=== PATIENT | male | born 1970 | race Caucasian/White ===

== ENCOUNTER 2017-04-29 | Emergency (ER) | payer SELFPAY ==
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
== END 2017-04-29 14:02 | disposition short-term general hospital (02) ==
CPT/HCPCS: 99285

== ENCOUNTER 2024-06-20 08:16 | Emergency (ER) | payer SELFPAY ==
--- OUTSIDE RECORDS SUMMARY | 2024-06-20 08:18 | XMS REPORT | Continuity of Care Document ---
Author Name Unknown Address [address] [facility] [place] [address] [facility] [place] Address [address] [facility] [place] [address] Care Team Providers Care Operations Chief Name Role Phone Sourav Lundberg Attending Clinician Unavailable Mayito Mcfarland Admitting Clinician Unavailable Payers Payer Name Policy Type Policy Number Effective Date Expirati on Date Source Allergies, Adverse Reactions, Alerts Allergy Name Allergy Type Status Severity Reaction(s) Onset Date Inactive Date Treating Clinician Comments Source No Known Allergie s DA Active U 2022-02 00:00: 00 [facility] Encounters Start Date/Time End Date/Time Encounter Type Admission Type Attending Clinicians Care Facility Care Department Encounter ID Source 2023-01-08 11:08:06 [id number] 2023-01-01 08:55:00 2023-01-02 20:01:00 Inpatient Sourav Da Silva [facility] [id number] [facility] Results Test Description Test Time Test Comments Results Result Co mments Source - NM MYOCRD SPECT R/S MULT 2023-01-03 15:04:00 [facility] : 1970 Sex: M ------- Patient Name: TRAVIS BAEZA Unit No: [id number] EXAMS: CPT CODE: [id number] NM MYOCRD SPECT R/S MULT [id number] Lexiscan Myocardial Perfusion Imaging Indication: chest pain Attending: Dr. Lata Lundberg Procedure: Stress testing was performed via Lexiscan protocol. 10.5 mCi of Tc99m Sestamibi was injected and rest images were obtained. The patient then underwent Lexiscan infusion per protocol. Next, 26.3 mCi of Tc99m Sestamibi mCi was injected and stress images were obtained. Description of findings: There was homogenous radiotracer distribution at stress and rest. LVEF was calculated to be 63%. Wall motion was normal. Impression: 1. Normal study 2. No significant reversible ischemia 3. Normal LVEF and wall motion at 1504 Reported and signed by: Jose Antonio Dodd MD Nuclear Medicine Cardiology exams performed on dual head cameras with appropriate software for processing and reporting. CC: Omar Anne MD [facility] NAME: TRAVIS BAEZA MEDICAL IMAGING PHYS: [id number] - Omar Anne MD [address] [place], [place] [address]VD : 1970 AGE: 52 SEX: Eric [place] [id number] LOC: B.01 W PHONE #: [phone] EXAM DATE: 01/02/2023 STATUS: DIS IN FAX #: [phone] RAD NO: DC Dt: 01/02/2023 PAGE 1 Signed Report --- Patient Name: TRAVIS BAEZA Unit No: [id number] EXAMS: CPT CODE: [id number] NM MYOCRD SPECT R/S MULT [id number] (Continued) Technologist: Jermain Cardenas Transcribed Date/Time: 01/03/2023 (1504) - [email or web address] Orig Print D/T: S: 01/03/2023 (1507) KENNEDI Monroe NAME: TRAVIS BAEZA MEDICAL IMAGING PHYS: ABBOmar Miner MD [address] [place] [address] BLVD : 1970 AGE: 52 SEX: MAN [place] [id number] LOC: B.01 W PHONE #: [phone] EXAM DATE: 01/02/2023 STATUS: DIS IN FAX #: [phone] RAD NO: DC Dt: 01/02/2023 PAGE 2 Signed Report TROP-I HIGH [id number] 20:05:00* Test Item Value Reference Range Interpretation Comme nts TROP-I HIGH SENSITIVITY (test code = TROPIHS) 6 ng/L 0-45 N CAUTION: Units of the current test methodology (ng/L) differfrom the prior test methodology (ng/mL) by a factor of 1000. 99th Percentile Upper Reference Limit (URL): Females: 54 ng/LMales: 78 ng/L In order to distinguish acute elevations of high sensitivitytroponin from other clinical conditions, the FourthUniversal Definition of Myocardial Infarction stressesclinical assessment and the demonstration of a rise and/orfall in serial troponin results above the URL. Results from different methodologies should not be comparedto one another as quantitative results and URLs may vary bymethod. THYROID STIMULATING [id number] 10:48:00* Test Item Value Reference Range Interpretation Comme nts THYROID STIMULATING HORMONE (test code = TSH) 0.790 mc IU/ML 0.340-4.820 N TROP-I HIGH [id number] 10:42:00* Test Item Value Reference Range Interpretation Comme nts TROP-I HIGH SENSITIVITY (test code = TROPIHS) 6 ng/L 0-45 N CAUTION: Units of the current test methodology (ng/L) differfrom the prior test methodology (ng/mL) by a factor of 1000. 99th Percentile Upper Reference Limit (URL): Females: 54 ng/LMales: 78 ng/L In order to distinguish acute elevations of high sensitivitytroponin from other clinical conditions, the FourthUniversal Definition of Myocardial Infarction stressesclinical assessment and the demonstration of a rise and/orfall in serial troponin results above the URL. Results from different methodologies should not be comparedto one another as quantitative results and URLs may vary bymethod. GLYCOSYLATED HEMOGLOBIN (HA1C)2023-01-01 10:26:00* Test Item Value Reference Range Interpretation Comme nts GLYCOSYLATED HEMOGLOBIN (HA1 C) (test code = GLYHGB) 5.2 % IS-A1C 4.5-5.6 N B-TYPE NATRIURETIC [id number] 08:07:00* Test Item Value Reference Range Interpretation Comme nts B-TYPE NATRIURETIC PEPTIDE ( test code = BNP) 35.87 PG/ML 0.00-100.00 N BASIC METABOLIC [id number] 07:59:00* Test Item Value Reference Range Interpretation Comme nts SODIUM (test code = NA) 142.0 mmol/L 133-144 N POTASSIUM (test code = K) 3.2 mmol/L 3.5-5.1 L CHLORIDE (test code = CL) 108 mmol/L 95-105 H CARBON DIOXIDE (test code = CO2) 27 mmol/L 21-32 N ANION GAP (test code = GAP) 7.0 GAP calc 4.0-15.0 N GLUCOSE (test code = GLU) 93 MG/DL 70-110 N BLOOD UREA NITROGEN (test code = BUN) 9 MG/DL 7-18 N GLOMERULAR FILTRATION RATE (test code = GFR) 84 estGFR >60 The Glomerular Filtration Rate is a calculated parameterbased on serum Creatinine, patient age and sex. GFR valuesless than 60 mL/min/1.73 square meters are indicative ofChronic Kidney Disease. Values less than 15 mL/min/1.73square meters indicate Kidney failure. The calculation forGFR is based on the CKD-EPI (2020) calculation. This formulais race indifferent and is the recommended formula for GFRby the National Kidney Foundation for Adults.The GFR will not calculate if the sex is unknown or if thepatient's age is <18 years. CREATININE (test code = CREAT) 1.07 MG/DL 0.55-1.30 N Results may be depressed if patient is takingN-Acetylcysteine (NAC) and Metamizole (Dipyrone). CALCIUM (test code = CA) 8.9 MG/DL 8.5-10.1 N INDEX HEMOLYSIS (test code = HEMINDEX) 1 NORMAL <10 MG Index/DL See_Comment [Automated message] The system which generated this result transmitted reference range: 1 NORMAL. The reference range was not used to interpret this result as normal/abnormal. INDEX ICTERIC (test code = ICTINDEX) 1 NORMAL <2 MG Index/DL See_Comment [Automated message] The system which generated this result transmitted reference range: 1 NORMAL. The reference range was not used to interpret this result as normal/abnormal. INDEX LIPEMIA (test code = LIPINDEX) 1 NORMAL <50 MG Index/DL See_Comment [Automated message] The system which generated this result transmitted reference range: 1 NORMAL. The reference range was not used to interpret this result as normal/abnormal. TROP-I HIGH [id number] 07:59:00* Test Item Value Reference Range Interpretation Comme nts TROP-I HIGH SENSITIVITY (test code = TROPIHS) 6 ng/L 0-45 N CAUTION: Units of the current test methodology (ng/L) differfrom the prior test methodology (ng/mL) by a factor of 1000. 99th Percentile Upper Reference Limit (URL): Females: 54 ng/LMales: 78 ng/L In order to distinguish acute elevations of high sensitivitytroponin from other clinical conditions, the FourthUniversal Definition of Myocardial Infarction stressesclinical assessment and the demonstration of a rise and/orfall in serial troponin results above the URL. Results from different methodologies should not be comparedto one another as quantitative results and URLs may vary bymethod. [id number] 07:46:00* Test Item Value Reference Range Interpretation Comme nts D-DIMER (test code = DDIMER) 318 FEUng/mL 0-500 N THE CUT-OFF VALU E FOR EXCLUSION OF VTE = 500 FEU ng/mLNOTE: This method must be used with additional tests in theevaluation of VTE and should not be used to exclude VTE withpretest probability alone. CBC W/O [id number] 07:43:00* Test Item Value Reference Range Interpretation Comme nts WHITE BLOOD CELL (test code = WBC) 6.8 K/mm3 4.1-12.1 N RED BLOOD CELL (test code = RBC) 4.75 M/mm3 3.8-5.5 N HEMOGLOBIN (test code = HGB) 14.5 G/DL 10.6-15.8 N HEMATOCRIT (test code = HCT) 42.0 % 31.8-47.4 N MEAN CELL VOLUME (test code = MCV) 88.4 fL 80.1-101.1 N MEAN CELL HGB (test code = MCH) 30.5 pg 25.3-35.3 N MEAN CELL HGB CONCETRATION ( test code = MCHC) 34.5 G/DL 32.7-35.1 N RED CELL DISTRIBUTION WIDTH (test code = RDW) 13.0 % 12.2-16.4 N PLATELET COUNT (test code = PLT) 191 K/mm3 155-337 N MEAN PLATELET VOLUME (test c ode = MPV) 9.0 fL 7.6-10.4 N - XR CHEST 1 [id number] 07:27:00 [facility] : 1970 Sex: M FAX:Emigdio Barahona Motley: E St: REG FAX: Isadora Snyder DO [phone] Patient Name: TRAVIS BAEZA Unit No: [id number]: CPT CODE: [id number] XR CHEST 1 V [id number] EXAM: - XR CHEST 1 V HISTORY: Chest pain LOCATION CODE:T18 TECHNIQUE: Frontal radiograph of the chest. COMPARISON: None. FINDINGS: Normal heart size. No focal airspace consolidation. No pulmonary edema, pleural effusion or pneumothorax. Imaged osseous structures are without acute abnormality. IMPRESSION: No radiographic evidence of acute cardiopulmonary disease. at 07 Reported and signed by: Jaclyn Cam MD CC: Emigdio JOHNSTON Dictated Date/Time: 01/01/2023 (726)Technologist: ROSANGELA FARIAS Transcribed Date/Time: 01/01/2023 (726) By: [email or web address] Orig Print D/T: S: 01/01/2023 (07) [facility] NAME: TRAVIS BAEAZ [address] [place] [address] PHYS: Emigdio Dill [place] [address] : 1970 AGE: 52 SEX: M LOC: [place] PHONE #:[phone] EXAM DATE: 01/01/2023 STATUS: REG ER FAX #: [phone] RAD NO: DC Dt: PAGE 1 SignedReport Notes Date/Time Note Provider Source 2023-01-09 09:33:00 [id number] [place] [address] PATIENT NAME: TRAVIS BAEZA ADMIT DATE: 01/01/23 ACCOUNT NO: [id number] ROOM NO: B. AGE: 52 REPORT TYPE: 360 - QUERY RESPONSE DOCUMENT SEX: M ADMITTING PHYSICIAN:Mayito Mcfarland MD ATTENDING PHYSICIAN:Souarv Lundberg MD Provider Query QUERY TEXT: Condition General 360MD Query related questions should be directed to:[facility] Coding Query Helpline Based on your medical judgment and the clinical indicators listed below kindly specify the underlying cause of the patient's Chest pain (GERD,Hypoakelmia,chest pain unspecified, or other more appropriate diagnosis)? The patient's Clinical Indicators include: Chest pain-Hospitalist progress note 01/02/2023 GERD-Hospitalist progress note 01/02/2023 Hypokalemia-Hospitalist progress note 01/02/2023 Options provided: -- Respond - Create new note now -- Dismiss - Not applicable / Not valid -- Dismiss - Clinically unable to determine / Unknown -- Assign to another provider QUERY RESPONSE: gerd Query created by: Jeremy Arnold on 01/05/2023 3:20 AM at 0933 PATIENT NAME: TRAVIS BAEZA [facility] 2023-01-03 12:35:00 [facility] Hospitalist Discharge Summary REPORT#:[id number] REPORT STATUS: Signed REPORT INITIALIZATION DATE:01/03/23 TIME: 1234 PATIENT: TRAVIS BAEZA UNIT #: [id number] ROOM/BED: [facility] : 70 AGE: 52 SEX: M ATTEND: Sourav Lundberg MD ADM AUTHOR: Sourav Lundberg MD REPT SERVICE DT/TIME: 01/02/23 1235 * ALL edits or amendments must be made on the electronic/computer document * General Information Discharge date: 01/02/23 Discharge diagnosis: GERD Chest pain Hospital course: This is a 52-year-old male with no significant past medical history, does report occasional symptoms of acid reflux which gets resolved with July-Eclectic. He comes in with 3 to 4-day history of heartburns and for the last 48 hours complains of sharp chest pain lasting for few minutes. No clear association to exertion. Also reports dyspnea on mild exertion, symptom onset in the last 2 to 3 days. Chest x-ray unremarkable. Twelve-lead EKG with no significant ST changes. Troponins negative. Patient was seen by cardiology and had a ischemic workup had a stress test done which was unremarkable cleared by cardiology for discharge discharge home on PPI Objective VS/I O Last Documented: Result Date Time Pulse Ox 97 01/03 1932 B/P 101/66 01/03 1932 B/P Mean 77.4 01/03 1932 Temp 98.1 01/03 1932 Pulse 78 01/03 1932 Resp 13 01/03 1932 O2 Delivery Room air 01/02 1137 General appearance: alert, awake Head/Eyes: atraumatic, clear cornea, EOMI, normal conjunctiva/sclera, normal eyelids/periorb., normocephalic, PERRL Cardiovascular: normal capillary refill, regular rate rhythm Respiratory: clear to auscultation, no distress Abdomen: non-tender, normal bowel sounds, soft, no distention, no guarding, no hernia, no mass/organomegaly, no rebound Extremities: moves all, normal capillary refill, normal range of motion, no edema Musculoskeletal: normal inspection Neuro/DIGITAL PRE PRESS OPERATOR: alert, oriented X 3 Discharge Instructions Additional Discharge Routines: PCP Follow-Up at 1236 RPT #:[id number] END OF REPORT [facility] 2023-01-02 18:46:00 [facility] Hospitalist Progress Note REPORT#:[id number] REPORT STATUS: Signed REPORT INITIALIZATION DATE:01/02/23 TIME: 1845 PATIENT: TRAVIS BAEZA UNIT #: [id number] ROOM/BED: [facility] : 70 AGE: 52 SEX: M ATTEND: Sourav Lundberg MD ADM AUTHOR: Sourav Lundberg MD REPT SERVICE DT/TIME: 01/02/231845 * ALL edits or amendments must be made on the electronic/computer document * Subjective HPI: pt seeen and examined at bedside Objective General VS/I O: Vital Signs: Date Time Temp Pulse Resp B/P B/P Pulse O2 O2 Flow FiO2 Mean Ox Delivery Rate 01/02 113 98.2 59 16 120/73 88.7 96 Room air 01/02 0735 98.8 60 16 125/77 92.9 99 Room air 01/02 0348 98.1 73 13 132/78 95.7 100 Room air 01/02 0324 100 Room air 01/01 2338 97.3 58 14 131/81 97.8 99 Room air 01/01 1915 97.7 51 14 111/72 84.9 97 Room air 24 hour I O ending at 0700: 01/02 0700 01/01 1900 Intake Total 200 650 Output Total Balance 200 650 Intake, Oral 200 650 Number Voids 3 4 Output, Emesis PATIENT WEIGHT: Weight (lb): Weight (oz): Weight (kg): 81.818 Medications: Active Meds + DC'd Last 24 Hrs Regadenoson (LEXISCAN) 0.4 MG .STK-MED ONE IV (DC) Technetium TC99M Sestamibi (TC 99M Sestamibi) 26.3 mCi .STK-MED ONE IV ( DC) Technetium TC99M Sestamibi (TC 99M Sestamibi) 10.5 mCi .STK-MED ONE IV ( DC) Aspirin (ASPIRIN) 81 MG DAILY PO Isosorbide Mononitrate (IMDUR) 30 MG DAILY PO Acetaminophen/Butalbital/Caffeine (FIORICET) 1 UDTAB Q6H PRN PRN PO Acetaminophen/Butalbital/Caffeine (FIORICET) 1 UDTAB ONCE ONE PO (DC) Atorvastatin Calcium (LIPITOR) 40 MG BEDTIME PO Nitroglycerin (NITRO-BID 2%) 1 INCH Q6H WA TOPICAL Acetaminophen (TYLENOL) 650 MG Q4H PRN PRN PO Albuterol/Ipratropium (DUONEB 2.5-0.5MG/3ML SOLN) 3 ML RTQ4H PRN PRN NEB Calcium Carbonate (TUMS) 1,000 MG DAILY PRN PRN PO Enoxaparin Sodium (LOVENOX) 40 MG Q24H SUBQ Hydralazine HCl (APRESOLINE) 10 MG Q4H PRN PRN IV Hydrocodone Bitart/Acetaminophen (NORCO 5/325 TABLET) 1 TAB Q4H PRN PRN PO Magnesium Sulfate/Dextrose (MAGNESIUM SULFATE 1GM/D5W 100ML) 100 ML DAILY PRN PRN IV Ondansetron HCl (ZOFRAN) 4 MG Q4H PRN PRN IV Potassium Chloride (K-DUR) 40 MEQ DAILY PRN PRN PO Potassium Phos/Sodium Phos (PHOS-NAK PACKET) 2 PKT DAILY PRN PRN PO (CKD ) Senna (SENOKOT) 1 TAB DAILY PRN PRN PO (CKD) Physical Exam General appearance: alert, awake Head/Eyes: atraumatic, clear cornea, EOMI, normal conjunctiva/sclera, normal eyelids/periorb., normocephalic, PERRL Cardiovascular: normal capillary refill, regular rate rhythm Respiratory: clear to auscultation, no distress Abdomen: non-tender, normal bowel sounds, soft, no distention, no guarding, no hernia, no mass/organomegaly, no rebound Extremities: moves all, normal capillary refill, normal range of motion, no edema Musculoskeletal: normal inspection Neuro/DIGITAL PRE PRESS OPERATOR: alert, oriented X 3 Diagnosis, Assessment Plan Free Text DxA P Notes Free text DxA P notes: Chest pain, ACS rule out. -Troponin x2 negative. EKG does show mild T wave inversions in V1 to V3 -Continue to trend troponin, aspirin, statin, Nitro-Bid. Echocardiogram -Restratification risk stratification -Cardiology consulted, appreciate recommendation. N.p.o. after midnight for possible ischemic NST PENDING ECHO results pending start on ppi Hypokalemia: Replace and monitor History of vaping -Patient counseled on cessation DVT prophylaxis Full code D/w pt/ RN Overall time speaking with consultants reviewing labs ordering new labs speaking with patient at bedside performing physical exam on patient and charting = 45 minutes. This note was created using a voice-recognition transcribing system. Incorrect words or phrases may have been missed during proofreading. Please interpret accordingly. I am SIGNING OFF to one of the Hospital Doc's animal caregiver overnight and dayshift Attending tomorrow- TO BE ASSIGNED MD - will continue patient's care and management effective tonight 7 PM. I am deferring further evaluation, treatment, and consultations to the assigned animal caregiver and attending. at 1847 RPT #:[id number] END OF REPORT [facility] 2023-01-02 14:37:00 [id number] [address] PATIENT NAME: TRAVIS BAEZA ADMIT DATE: 01/01/23 ACCOUNT NO: [id number] ROOM NO: [facility] AGE: 52 REPORT TYPE: eECHOCARDIOGRAM REPORT SEX: M ADMITTING PHYSICIAN:Mayito Mcfarland MD ATTENDING PHYSICIAN:Sourav Lundberg MD Name: TRAVIS BAEZA Study Date: 01/02/2023 02:37 PMPatient Location: [facility] B.01 W URN: [id number] Gender: Male : 1970 Gender: Male Age: 52 yrs Ethnicity: W Reason For Study: CHEST PAIN Cardiac Measurements with Normal Values: Ao root diam: 3.0 cm 20-37 mmACS: 2.2 cm 15-26 mm LA dimension: 3.0 cm 19-40 mm LVIDd: 4.5 cm 37-56 mm LVIDs: 3.4 cm - IVSd: 0.79 cm6-11 mm RVDd: 3.2 cm 7-23 mm MMode/2D Measurements Calculations LVPWd: 0.89 cm FS: 25.3 % EDV(Teich): 91.9 ml ESV(Teich): 45.8 ml EF(Teich): 50.1 % LVOT diam: 2.0 cm Ao root area: 6.9 cm2 LVOT area: 3.1 cm2 Time Measurements Aortic R-R: 1.1 sec MM R-R int: 1.2 sec Aortic HR: 52.5 BPM MM HR: 51.2 BPM Doppler Measurements Calculations MV E max payal: 55.9 cm/sec MV V2 max: 65.2 cm/sec MV A max payal: 52.1 cm/sec MV max P.7 mmHg MV E/A: 1.1 MV V2 mean: 29.1 cm/sec MV mean P.46 mmHg MV V2 VTI: 23.1 cm MVA(VTI): 2.4 cm2 PATIENT NAME: TRAVIS BAEZA Ao V2 max: 96.1 cm/sec MV dec slope: 268.4 cm/sec2 Ao max P.7 mmHg MV dec time: 0.21 sec Ao V2 mean: 65.5 cm/sec Ao mean P.0 mmHg Ao V2 VTI: 22.2 cm MELANY(I,D): 2.5 cm2 MELANY(V,D): 2.6 cm2 LV V1 max P.6 mmHg CO(LVOT): 2.9 l/min LV V1 mean P.0 mmHg SV(LVOT): 54.7 ml LV V1 max: 80.2 cm/sec LV V1 mean: 44.5 cm/sec LV V1 VTI: 17.8 cm PA V2 max: 72.0 cm/sec PA max P.1 mmHg Conclusions A complete two-dimensional transthoracic echocardiogram was performed (2D, M- mode, Doppler and color flow Doppler). The study was technically limited. The left ventricle is grossly normal size. Left ventricular systolic function is normal. Ejection Fraction = 55-60%. The left ventricular wall motion is normal. Left Ventricle The left ventricle is grossly normal size. There is normal left ventricular wall thickness. Left ventricular systolic function is normal. Ejection Fraction = 55-60%. The left ventricular wall motion is normal. Right Ventricle The right ventricle is mildly dilated. The right ventricular systolic function is normal. Atria The left atrial size is normal. Right atrial size is normal. Mitral Valve The mitral valve is grossly normal. Tricuspid Valve The tricuspid valve is not well visualized, but is grossly normal. There is trace tricuspid regurgitation. Insufficient TR jet to estimate RVSP. Aortic Valve The aortic valve opens well. Pulmonic Valve PATIENT NAME: TRAVIS BAEZA The pulmonic valve is not well visualized. Pericardium/Pleural There is no pericardial effusion. Electronically signed by: MD Omar Anne 01/03/2023 11:03 AM Ordering Physician: Sourav Lundberg Referring Physician: Sourav Lundberg Performed By: Tesfaye Nguyễn at 1103 PATIENT NAME: TRAVIS BAEZA [facility] 2023-01-02 11:06:00 [facility] Int. Cardiology Consult Note REPORT#:[id number] REPORT STATUS: Signed REPORT INITIALIZATION DATE:01/02/23 TIME: 1105 PATIENT: TRAVIS BAEZA UNIT #: [id number] ROOM/BED: [facility] : 70 AGE: 52 SEX: M ATTEND: Sourav Lundberg MD ADM AUTHOR: Omar Anne MD REPT SERVICE DT/TIME: 01/02/23 1106 * ALL edits or amendments must be made on the electronic/computer document * History of Present Illness History of Present Illness Reason for consult: Chest Pain Chief complaint: Chest pain HPI: This is a 52-year-old male with no significant past medical history, does report occasional symptoms of acid reflux which gets resolved with July-Eclectic. He comes in with 3 to 4-day history of heartburns and for the last 48 hours complains of sharp chest pain lasting for few minutes. No clear association to exertion. Also reports dyspnea on mild exertion, symptom onset in the last 2 to 3 days. Chest x-ray unremarkable. Twelve-lead EKG with no significant ST changes. Troponins negative. He removed his Nitropaste as he was complaining of significant migraine. Past medical history of appendectomy and 3 right shoulder surgeries for rotator cuff. 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 Hx Obtained From Patient History - Adult longitudinal Past medical history: Denies: GERD/gastritis. Past surgical history: Reports: Appendectomy. Smoking status for patients 13 years old or older: Current every day smoker Medications: Home Medications: Medication Dose/Rte/Freq Days Qty Entered Last Max Daily Dose Reviewed No Known Home Medications Current Hospital Medications: Autonomic Drugs Sig/Paolo Start time Last Medication Dose Route Stop Time Status Admin Albuterol/Ipratropium 3 ML RTQ4H PRN PRN 01/01 0915 AC (DUONEB 2.5-0.5MG/ NEB 01/31 0916 3ML SOLN) Blood Formation,Coagulation Sig/Paolo Start time Last Medication Dose Route Stop Time Status Admin Enoxaparin Sodium 40 MG Q24H 01/01 0915 AC 01/02 (LOVENOX) SUBQ 01/31 0916 0906 Cardiovascular Drugs Sig/Paolo Start time Last Medication Dose Route Stop Time Status Admin Isosorbide 30 MG DAILY 01/02 09 AC 01/02 Mononitrate PO 02/01 0901 0906 (IMDUR) Atorvastatin Calcium 40 MG BEDTIME 01/01 2100 AC 01/01 (LIPITOR) PO 01/31 2101 2104 Nitroglycerin 1 INCH Q6H WA 01/01 1200 AC 01/01 (NITRO-BID 2%) TOPICAL 01/31 1201 1113 Hydralazine HCl 10 MG Q4H PRN PRN 01/01 0915 AC (APRESOLINE) IV 01/31 0916 Central Nervous System Agents Sig/Paolo Start time Last Medication Dose Route Stop Time Status Admin Aspirin 81 MG DAILY 01/02 09 AC 01/02 (ASPIRIN) PO 02/01 0901 0906 Acetaminophen/ 1 UDTAB Q6H PRN PRN 01/02 0745 AC 01/02 Butalbital/Caffeine PO 02/01 0746 0801 (FIORICET) Acetaminophen/ 1 UDTAB ONCE ONE 01/01 2345 DC 01/01 Butalbital/Caffeine PO 01/01 2346 2338 (FIORICET) Acetaminophen 650 MG Q4H PRN PRN 01/01 915 AC (TYLENOL) PO 02/01 916 Hydrocodone Bitart/ 1 TAB Q4H PRN PRN 01/01 915 AC 01/01 Acetaminophen PO 02/01 916 1809 (NORCO 5/325 TABLET) Magnesium Sulfate/ 100 ML DAILY PRN PRN 01/01 915 AC Dextrose IV 02/01 916 (MAGNESIUM SULFATE 1GM/D5W 100ML) Electrolytic, Caloric, And Marti Sig/Paolo Start time Last Medication Dose Route Stop Time Status Admin Calcium Carbonate 1,000 MG DAILY PRN PRN 01/01 915 AC (TUMS) PO 02/01 916 Potassium Chloride 40 MEQ DAILY PRN PRN 01/01 915 AC (K-DUR) PO 02/01 916 Potassium Phos/ 2 PKT DAILY PRN PRN 01/01 915 CKD Sodium Phos PO 02/01 916 (PHOS-NAK PACKET) Gastrointestinal Drugs Sig/Paolo Start time Last Medication Dose Route Stop Time Status Admin Ondansetron HCl 4 MG Q4H PRN PRN 01/01 915 AC 01/01 (ZOFRAN) IV 01/318 Senna 1 TAB DAILY PRN PRN 01/01 915 CKD (SENOKOT) PO 02/01 916 Allergies: Coded Allergies: No Known Allergies (01/01/23) Review of Systems Constitutional: No: chills, fatigue, fever. Skin: No: rash, swelling. Allergy/Immun: No: allergic reaction, anaphylaxis. Eyes: No: visual loss/blurred, itching, diplopia, eye pain. ENT: No: ear ringing, earache. Respiratory: Yes: COLEMAN (dyspnea on exertion). Cardiovascular: Yes: chest pain. No: orthopnea, palpitations. GI: No: abdominal pain, anorexia. Musculoskeletal: No: joint swelling, neck pain. Heme: No: bleeding, bruising. Neuro: No: lightheaded, unable to speak, weakness. Objective VS/I O: Last Documented: Result Date Time Pulse Ox 99 01/02 735 B/P 125/77 01/02 735 B/P Mean 92.9 01/02 735 O2 Delivery Room air 01/02 735 Temp 98.8 01/02 735 Pulse 60 01/02 735 Resp 16 01/02 735 24 hour I O ending at 0700: 01/02 0700 01/01 1900 Intake Total 200 650 Output Total Balance 200 650 Intake, Oral 200 650 Number Voids 3 4 Output, Emesis PATIENT WEIGHT: Weight (lb): Weight (oz): Weight (kg): 81.818 General appearance: alert, awake, oriented Head/Eyes: PERRLA ENT: moist mucosal membranes, normal nose, normal pharynx Neck: non-tender, no JVD Cardiovascular: CV assessment: regular rate and rhythm Respiratory: clear to auscultation, no distress Abdomen: soft, non-tender Musculoskeletal: CVA tenderness (no edema) Neuro/DIGITAL PRE PRESS OPERATOR: alert, oriented X 3, CN II-XII intact Skin: intact, normal color Assessment Plan Free Text A P Notes Free Text A P: Atypical chest pain Dyspnea on exertion Active tobacco use Troponins normal Lipid profile showed LDL of 86 Plan: Aspirin Echo telemetry monitor Lexiscan stress MPI study Will continue to follow. Thanks for letting us participate in the care of this patient. at 1117 RPT #:[id number] END OF REPORT [facility] 2023[facility]01 09[facility]24[facility] REPORT#:[id number] REPORT STATUS: Signed REPORT INITIALIZATION DATE:01/01/23 TIME: 923 PATIENT: TRAVIS BAEZA UNIT #: [id number] ROOM/BED: [facility] : 70 AGE: 52 SEX: M ATTEND: Sourav Lundberg MD ADM AUTHOR: Mayito Mcfarland MD REPT SERVICE DT/TIME: 01/01/23923 * ALL edits or amendments must be made on the electronic/computer document * History Social History Smoking status for patients 13 years old or older: Current every day smoker Medication/Allergy-Vaccine Hx Allergies: Coded Allergies: No Known Allergies (01/01/23) OBJECTIVE VS/I O: Current Medications Sig/Paolo Start time Last Medication Dose Route Stop Time Status Admin Aspirin 81 MG DAILY 01/02 900 AC 01/02 PO 02/01 0901 0906 Isosorbide 30 MG DAILY 01/02 0900 AC 01/02 Mononitrate PO 02/01 0901 0906 Acetaminophen/ 1 UDTAB Q6H PRN PRN 01/02 0745 AC 01/02 Butalbital/Caffeine PO 02/01 0746 0801 Acetaminophen/ 1 UDTAB ONCE ONE 01/01 2345 DC 01/01 Butalbital/Caffeine PO 01/01 2346 2338 Atorvastatin Calcium 40 MG BEDTIME 01/01 2100 AC 01/01 PO 01/31 2101 2104 Nitroglycerin 1 INCH Q6H WA 01/01 1200 AC 01/01 TOPICAL 01/31 1201 1113 Acetaminophen 650 MG Q4H PRN PRN 01/01 0915 AC PO 01/31 0916 Albuterol/Ipratropium 3 ML RTQ4H PRN PRN 01/01 0915 AC NEB 01/31 0916 Calcium Carbonate 1,000 MG DAILY PRN PRN 01/01 0915 AC PO 01/31 0916 Enoxaparin Sodium 40 MG Q24H 01/01 0915 AC 01/02 SUBQ 01/31 0916 0906 Hydralazine HCl 10 MG Q4H PRN PRN 01/01 0915 AC IV 01/31 0916 Hydrocodone Bitart/ 1 TAB Q4H PRN PRN 01/01 0915 AC 01/01 Acetaminophen PO 01/31 0916 1809 Magnesium Sulfate/ 100 ML DAILY PRN PRN 01/01 0915 AC Dextrose IV 01/31 0916 Ondansetron HCl 4 MG Q4H PRN PRN 01/01 0915 AC 01/01 IV 01/31 0916 2128 Potassium Chloride 40 MEQ DAILY PRN PRN 01/01 0915 AC PO 01/31 0916 Potassium Phos/ 2 PKT DAILY PRN PRN 01/01 0915 CKD Sodium Phos PO 01/31 0916 Senna 1 TAB DAILY PRN PRN 01/01 0915 CKD PO 01/31 0916 Recent Impressions: RADIOLOGY - XR CHEST 1 V 01/01 0707 Report Impression - Status: SIGNED Entered: 01/01/2023 0730 IMPRESSION: No radiographic evidence of acute cardiopulmonary disease. Impression By: [email or web address] - Jaclyn Cam MD Vital Signs Date Temp Pulse Resp B/P B/P Mean Pulse Ox FiO2 01/01-01/02 97.3-98.8 51-73 13-20 111-152/69-88 84.4-109 97-100 Last Documented: Result Date Time Pulse Ox 99 01/02 735 B/P 125/77 01/02 735 B/P Mean 92.9 01/02 735 O2 Delivery Room air 01/02 735 Temp 98.8 01/02 735 Pulse 60 01/02 735 Resp 16 01/02 735 24 hour I O ending at 0700: 01/02 0700 01/01 1900 Intake Total 200 650 Output Total Balance 200 650 Intake, Oral 200 650 Number Voids 3 4 Output, Emesis Patient Weight and BMI Weight (kg): 81.818 BMI: 26.6 Diagnosis, Assessment Plan Free Text A P: Mr. Dunn is a 52-year-old gentleman with no significant past medical history, he is not on any medication, prior history of tobacco use, has not seen a PCP in 20 years. He presented the ED due to chest pain since 3 days. Patient states that he has chronic heartburn for which he uses July-Eclectic with improvement in his symptoms however, since last 3 to 4 days he been endorsing sharp left-sided chest pain, this is associated with nausea vomiting and shortness of breath. Currently he states that his chest pain is constant, is no longer sharp instead heavy, associated with shortness of breath both on exertion and at rest. He has a history of tobacco use, smoked half a pack a day since 35 years however quit 1 year ago, now occasionally vapes. He does have a family history of premature CAD, father had an CO at the age of 48. Otherwise denies alcohol use, inconsistently smokes marijuana. Past medical history: As no known past medical history Past surgical history: Cholecystectomy, right shoulder repair surgery x3. Social history: As mentioned above Review of systems: 12 point review of systems obtained, also negative except for pertinent positive mentioned above. Objective: General appearance: alert, awake, oriented, no acute distress Head/Eyes: atraumatic, normocephalic ENT: moist mucosal membranes Cardiovascular: regular rate rhythm Respiratory: aerating well, clear to auscultation Abdomen: non-tender, soft, bowel sound present Extremities: moves all, no edema Musculoskeletal: normal inspection Neuro/DIGITAL PRE PRESS OPERATOR: alert, oriented X 3 Psychiatry: normal affect Assessment and plan: Chest pain, ACS rule out. -Troponin x2 negative. EKG does show mild T wave inversions in V1 to V3 -Continue to trend troponin, aspirin, statin, Nitro-Bid. Echocardiogram -Restratification risk stratification -Cardiology consulted, appreciate recommendation. N.p.o. after midnight for possible ischemic Hypokalemia: Replace and monitor History of vaping -Patient counseled on cessation DVT prophylaxis Full code D/w pt/ RN Overall time speaking with consultants reviewing labs ordering new labs speaking with patient at bedside performing physical exam on patient and charting = 45 minutes. This note was created using a voice-recognition transcribing system. Incorrect words or phrases may have been missed during proofreading. Please interpret accordingly. I am SIGNING OFF to one of the Hospital Doc's animal caregiver overnight and dayshift Attending tomorrow- TO BE ASSIGNED MD - will continue patient's care and management effective tonight 7 PM. I am deferring further evaluation, treatment, and consultations to the assigned animal caregiver and attending. at 0950 RPT #:[id number] END OF REPORT [facility] 2023-01-01 07:06:00 [facility] EMERGENCY PROVIDER REPORT REPORT#:[id number] REPORT STATUS: Signed DATE:01/01/23 TIME: 705 PATIENT: TRAVIS BAEZA UNIT #: [id number] ROOM/BED: [facility] AGE: 52 SEX: M PCP PHYS: Tommy Carrera MD SERVICE AUTHOR: Emigdio Diaz * ALL edits or amendments must be made on the electronic/computer document * Emigdio Diaz 01/01/23 0706: HPI-Chest Pain 40 and Over Free Text HPI Notes Free Text HPI Notes 50-year-old male who reports no chronic medical history complains of chest pain for the past 2 days. Locates chest pain to left anterior chest and radiates to his left neck. He describes the chest pain as a gripping pressure. He states that his chest pain increases when he walks short distances. He admits to having smoked for numerous years quit approxi-1 years ago and vapes today. He did not take aspirin prior to arrival. He denies headache, blurred vision, nausea/vomiting, diaphoresis, or any other symptoms. General Confirmed Patient Yes Initial Greet Date/Time 01/01/2354 Presentation Chief Complaint Chest pain Sudden in Onset? No )( Migration/Movement to left neck Risk-Chest Pain 40 and Over Risk Stratification )( Coronary Artery Disease Risk factors reviewed, Smoking )( Thoracic Aortic Dissection Risk factors reviewed )( Pulmonary Embolism Risk factors reviewed )( AMI-Aspirin Aspirin Last 24 Hrs On arrival )( HEART for MACE )( HEART for MACE Response Value History Mod index of suspicion 1 ECG Interpretation Normal ECG 0 Age Age 45 - 65 1 Risk Factors for CAD 1-2 CAD risk factors 1 Total 3 Review of Systems ROS Statements All systems rev neg except as marked. Focused Review of Systems Constitutional Denies: Chills, Fever, Weakness - generalized. Cardiovascular Reports: Chest pain, Dyspnea on exertion. Denies: Palpitations, Syncope. GI Denies: Nausea, Vomiting. Past Medical History - Adult Stated Complaint CHEST PAIN Allergies Coded Allergies: No Known Allergies (01/01/23) Home Medications Reported Medications No Known Home Medications Smoking status for patients 13 years old or older: Current every day smoker Physical Exam Vital Signs Vital Signs First Documented: Result Date Time Pulse Ox 99 01/02 652 B/P 139/86 01/02 652 B/P Mean 103 01/02 652 O2 Delivery Room air 01/02 652 Temp 98.4 01/02 652 Pulse 84 01/02 652 Resp 16 01/02 652 Last Documented: Result Date Time Pulse Ox 99 01/02 652 B/P 139/86 01/02 652 B/P Mean 103 01/02 652 O2 Delivery Room air 01/02 652 Temp 98.4 01/02 652 Pulse 84 01/02 652 Resp 16 01/02 652 Review of Vital Signs Reviewed Focused PE Eyes Eyes EOMI MS Neck Neck Supple, Full range of motion, No adenopathy, No swelling, Non-tender, No midline vertebral tend Resp/Chest Respiratory/Chest Breath sounds NL, Breath sounds = bilat, No respiratory distress, No wheezing, No retractions Cardiovascular Cardiovascular Heart rate NL, Regular rhythm, Heart sounds NL, Cap refill not delayed, Peripheral circulation NL Abdomen/GI Abdomen/GI Soft, Non-tender, No guarding, No rebound MS Back Back Inspection NL, Full range of motion, Painless range of motion, Non- tender, No midline vertebral tend, No paraspinal tenderness, No CVA tenderness MS Lower Extrem Lower Ext/Pelvis/MS Inspection NL, Full range of motion, No swelling, Non- tender Skin Skin Color NL, Warm, Dry Neurologic Neurologic Oriented X3, Speech NL, Memory NL Interpretation Diagnostics Lab Results Interpretation Considerations Independ review imaging, Reviewed prior records Results Laboratory Tests 01/01/23719: [Embedded Image Not Available] Laboratory Tests: 01/01 0720 Chemistry Sodium (133 - 144 mmol/L) 142.0 Potassium (3.5 - 5.1 mmol/L) 3.2 L Chloride (95 - 105 mmol/L) 108 H Carbon Dioxide (21 - 32 mmol/L) 27 Anion Gap (4.0 - 15.0 GAP calc) 7.0 BUN (7 - 18 MG/DL) 9 Creatinine (0.55 - 1.30 MG/DL) 1.07 Glomerular Filtr Rate (>60 estGFR) 84 Glucose (70 - 110 MG/DL) 93 Calcium (8.5 - 10.1 MG/DL) 8.9 Troponin I High Sens (0 - 45 ng/L) 6 B-Natriuretic Peptide (0.00 - 100.00 PG/ML) 35.87 Specimen Appearance (1 NORMAL Index/DL) 1 NORMAL <2 MG Specimen Hemolysis (1 NORMAL Index/DL) 1 NORMAL <10 MG Coagulation D-Dimer (0 - 500 FEUng/mL) 318 Hematology WBC (4.1 - 12.1 K/mm3) 6.8 RBC (3.8 - 5.5 M/mm3) 4.75 Hgb (10.6 - 15.8 G/DL) 14.5 Hct (31.8 - 47.4 %) 42.0 MCV (80.1 - 101.1 fL) 88.4 MCH (25.3 - 35.3 pg) 30.5 MCHC (32.7 - 35.1 G/DL) 34.5 RDW (12.2 - 16.4 %) 13.0 Plt Count (155 - 337 K/mm3) 191 MPV (7.6 - 10.4 fL) 9.0 Recent Impressions: RADIOLOGY - XR CHEST 1 V 01/01 707 Report Impression - Status: SIGNED Entered: 01/01/2023 0730 IMPRESSION: No radiographic evidence of acute cardiopulmonary disease. Impression By: [email or web address] - Jaclyn Cam MD Lab Imaging Statement Laboratory radiographic studies reviewed and considered in the medical decision-making. ECG #1 Interpretation Text/Dict Note January 01, 2023 at 657 hours, sinus rhythm, inverted T waves in leads V1 through V3, no ST elevation, no acute CO Re-Evaluation MDM Free Text MDM Notes Free Text MDM Notes Differential Diagnoses (considered and possible or likely): unstable angina, STEMI, NSTEMI, pneumonia, sepsis Differential Diagnoses (considered and unlikely, not requiring evaluation currently): STEMI, NSTEMI, pneumonia, sepsis Chronic Conditions (stable and unstable): Smoker Comorbid Condition Impacting Present Evaluation/Treatment: smoker ECG/Rhythm Strip/Eyelet Operator Rhythm Interpretation (rhythm, rate, axis, QRS/ T waves, acute/chronic changes, comparisons, clinical findings/diagnosis): January 01, 2023 at 657 hours, sinus rhythm, inverted T waves in leads V1 through V3, no ST elevation, no acute CO Imaging Studies: CXR - independently reviewed imaging studies, no acute abnormality identified Tests Ordered and Tests Considered: CBC, BMP, BNP, Troponin, Ddimer [employer] Discussion(s): - 0855: Dr. Mcfarland, internal medicine, she accepts the admission. Independent Historian: family present at the time of visit. Knowledgeable about the patient's PMHx and current compaint. Social Determinants of Health: family present at the time of visit. External Records Review: NA Consideration for Hospitalization: patient has concerning chest pain, will admit for ACS r/o Need to Initiate or Forego Further Testing: telemetry monitoring, serial heart enzymes Need to Monitor for Drug Toxicities: NA Illness with High Risk of Morbidity without Treatment: NA Out-Patient Prescriptions Affecting Other Chronic Conditions: NA ED Course and Follow-Up Plan: - 0855: Dr. Mcfarland, internal medicine, she accepts the admission. Re-Evaluation/Progress #1 Time of Re-Eval 0856 Re-Eval Status Unchanged ED Course Medication(s) Ordered Medication(s) Ordered: Cardiovascular Drugs Sig/Paolo Start time Last Medication Dose Route Stop Time Status Admin Nitroglycerin 0.4 MG X1ED STA 01/01 0710 DC 01/01 SL 01/01 711 0722 Central Nervous System Agents Sig/Paolo Start time Last Medication Dose Route Stop Time Status Admin Aspirin 325 MG X1ED STA 01/01 0705 DC 01/01 PO 01/01 706 0721 Differential Diagnosis )( Differential Diagnosis Acute coronary syndrome, Anxiety disorder, Chest pain, Chest pain, acute Patient Discharge Departure Vital Signs/Condition Vital Signs First Documented: Result Date Time Pulse Ox 99 01/01 0652 B/P 139/86 01/01 0652 B/P Mean 103 01/01 0652 O2 Delivery Room air 01/02 652 Temp 98.4 01/02 652 Pulse 84 01/02 652 Resp 16 01/02 652 Last Documented: Result Date Time Pulse Ox 99 01/01 0652 B/P 139/86 01/01 0652 B/P Mean 103 01/01 0652 O2 Delivery Room air 01/02 652 Temp 98.4 01/02 652 Pulse 84 01/02 652 Resp 16 01/02 652 All vital signs available at the time of this entry have been reviewed. Condition Stable Clinical Impression Clinical Impression Primary Impression: Unstable angina Disposition Decision Hospitalize Hosp Physician Name Mayito Mcfarland MD [facility] Physician Hospitalist Request Time 0855 Request Date 01/01/23 )( Accepts Hospitalization Yes )( Reason for Hospitalization unstable angina )( Accepted Time 0855 )( Accepted Date 01/01/23 Call Information will see patient Discharge/Care Plan Counseled Regarding Diagnosis, Lab results, Imaging studies, Need for admission (Auto) Prescriptions Current Visit Scripts No Known Home Medications Admit Note I have spoken with the patient and/or caregivers. I have explained the patient's condition, diagnoses and treatment plan based on the information available to me at this time. I have answered the patient's and/or caregiver's questions and addressed any concerns. The patient and/or caregivers have as good an understanding of the patient's diagnosis, condition and treatment plan as can be expected at this point. The patient has been stabilized within the capability of the emergency department. The patient will be transported for further care and management or will be moved to an observation or inpatient service. I have communicated with the staff or medical practitioner taking over this patient's care. Quality Measures 12-Lead ECG for CP Performed documented ISADORA SNYDER DO 01/02/23 1643: Patient Discharge Departure Supervising Physician Note MidLv Saw Pt Alone [ 3] Level 3: I directly evaluated this patient and performed unique parts of the history and physical, as documented by me in the patient s chart. I agree with the plan of care. at 1016 at 8335 RPT #:[id number] END OF REPORT [facility]
--- NOTE | 2024-06-20 09:03 | RAD REPORT ---
EXAMINATION: Head Brain Wo Cont CLINICAL INDICATION: Male, 53 years old.headache x 2 days TECHNIQUE: Axial CT images from the skull base to the vertex without intravenous contrast. Coronal an d sagittal reformatted images were created from the data set. One or more of the following dose reduction techniques were used: Automated exposure control, adjustment of the mA and/or kV according to patient size, and/or iterative reconstruction. Unless otherwise specified, incidental findings do not require dedicated imaging follow-up. [id number]. COMPARISON: 12/10/2014 FINDINGS: INTRACRANIAL: No acute intracranial hemorrhage. No hydrocephalus. No mass effect or midline shift. No significant white matter disease. VASCULATURE: No visualized abnormalities in the arteries or dural venous sinuses. SCALP/SKULL: No calvarial fracture identified. No acute soft tissue abnormality. SINUSES: The visualized paranasal sinuses are mostly clear. No significant mastoid fluid. IMPRESSION: No acute intracranial abnormality. No significant change from prior.
[2024-06-20] MEDS ORDERED: DIAZEPAM 5 MG TABLET ONE (09:05)
[2024-06-20] MEDS ORDERED: NA CHLORIDE 0.9% 1,000 ML ONE (09:05)
[2024-06-20] MEDS ORDERED: METOCLOPRAMIDE 10 MG/2mL INJ ONE (09:05)
[2024-06-20 09:13] LABS: Absolute Basophils 0.1 K/uL (0-0.5); Absolute Monocytes 0.4 K/uL (0.1-1.3); Absolute Neutrophil 6.3 K/uL (1.8-8.0); Basophils % 0.7 % (0-1.3); Hematocrit 38.9 % (39.6-49.0); Hemoglobin 13.7 g/dL (13.6-17.9); Lymphocytes % 13.1 % (15.3-44.8); MCH 32.8 pg (27.0-35.0); MCHC 35.1 g/dL (32.0-36.0); MCV 93.3 fL (80-100); MPV 6.4 fL (7.6-11.3); Monocytes % 5.1 % (3.3-12.3); Neutrophils % 81.1 % (41.7-73.7); Platelets 272 thou/uL (152-406); RBC Red Blood Cell Count 4.17 M/uL (4.33-5.43)
--- NOTE | 2024-06-20 09:19 | RAD REPORT ---
EXAM: Chest Single View HISTORY: 53 years Male smoker, weight loss COMPARISON: None. FINDINGS: LUNGS/PLEURA: The lungs are clear. No pleural effusions or pneumothorax. No pulmonary edema. CARDIAC/MEDIASTINUM: The cardiac silhouette is within normal limits. UPPER ABDOMEN: No significant abnormality. BONES: No acute abnormality. LINES/TUBES/OTHER: N/A IMPRESSION: No evidence of acute cardiopulmonary disease.
[2024-06-20 09:30] LABS: ALT/SGPT 17 U/L (16-61); Albumin 3.4 g/dL (3.4-5.0); Albumin/Globulin Ratio 1.1 (1.1-1.8); Alkaline Phosphatase 103 U/L (45-117); Anion Gap 7.8 mEq/L (5.0-15.0); BUN Blood Urea Nitrogen 8 mg/dL (7-18); Bicarbonate 32 mEq/L (21-32); Bilirubin Total 0.3 mg/dL (0.2-1.0); Globulin 3.2 g/dL (2.3-3.5); Glomerular Filtration Rate 103 ml/min (=/>90); Glucose Level 82 mg/dL (74-106); Potassium 3.8 mEq/L (3.5-5.1); Protein, Total 6.6 g/dL (6.4-8.2); Sodium Level 142 mEq/L (136-145)
[2024-06-20 09:34] LABS: AST/SGOT < 10 U/L (15-37)
--- NOTE | 2024-06-20 09:48 | EDPHYS ---
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 08:47 The patient complains of pain to the top of head. The patient describes the headache as rn aching. Onset: The symptoms/episode began/occurred 2 day(s) ago. Severity of symptoms: At its worst the pain was moderate, in the emergency department the pain is unchanged. The patient has not experienced similar symptoms in the past. Patient reports headache and generalized malaise with anxiety and restlessness for the last few days. Patient reports has been using kratom for the last year or so to treat chronic shoulder pain. Used to be on gabapentin but lost insurance so put himself on kratom. Has noticed a dependence on it with increased dosage. Patient has tried to quit several times but unable to successfully. Recently trying again to quit and has decreased his dosage over the last few days. Patient reports ringing in his head and headache. No focal neurological deficit. No vision changes. No speech changes. Also reports significant weight loss over the last year. No hemoptysis/hematuria/blood in stool. No known family history of cancer. Patient states eating well.. Historical: - Allergies: 08:41 No Known Allergies; iw - Home Meds: 08:41 None [Active]; iw - PMHx: 08:41 neuropathy; iw - PSHx: 08:41 shoulder; Appendectomy; iw - Immunization history:: Adult Immunizations not up to date. - Infectious Disease History:: Denies. - Social history:: Smoking status: Reported history of juuling and/or vaping. - Family history:: not pertinent. - Hospitalizations: : No recent hospitalization is reported. ROS: 08:47 Constitutional: Positive for weight loss, negative for fever or chills Eyes: Negative rn for injury, pain, redness, and discharge, Neck: Negative for injury, pain, and swelling, Cardiovascular: Negative for chest pain, palpitations, and edema, Respiratory: Negative for shortness of breath, cough, wheezing, and pleuritic chest pain, Abdomen/GI: Negative for abdominal pain, nausea, vomiting, diarrhea, and constipation, Back: Negative for injury and pain, : Negative for injury, bleeding, discharge, and swelling, MS/Extremity: Negative for injury and deformity, Skin: Negative for injury, rash, and discoloration, Neuro: Positive for headache, negative for focal weakness or numbness. No seizure Exam: 08:47 Constitutional: This is a well developed, well nourished patient who is awake, alert, rn and in no acute distress. Head/Face: Normocephalic, atraumatic. Eyes: Pupils equal round and reactive to light, extra-ocular motions intact. Neck: Neck supple, no meningismus Cardiovascular: Tachycardic, regular Respiratory: Speaking full sentences, unlabored. No increased work of breathing, no retractions or nasal flaring. Abdomen/GI: Soft, non-tender Skin: No lesions Neuro: Awake and alert, GCS 15, oriented to person, place, time, and situation. Cranial nerves II-XII grossly intact. Motor strength 5/5 in all extremities. Sensory grossly intact. Cerebellar exam normal. Normal gait. Vital Signs: 08:28 BP 142 / 89; Pulse 101; Resp 18; Temp 99; Pulse Ox 100% on R/A; Weight 58.97 kg; Height iw 5 ft. 9 in. ; Pain 7/10; 09:12 BP 124 / 82; Pulse 79; Resp 18; Pulse Ox 100% on R/A; ld1 10:15 BP 127 / 76; Pulse 74; Resp 18; Pulse Ox 100% on R/A; ld1 08:28 Body Mass Index 19.20 (58.97 kg, 175.26 cm) iw 08:28 Pain Scale: Adult iw Dewey Coma Score: 09:44 Eye Response: spontaneous(4). Motor Response: obeys commands(6). Verbal Response: rn oriented(5). Total: 15. MDM: 08:21 Medical Screening Exam initiated rn 09:44 Differential diagnosis: cluster headache, hypertensive headache, intracerebral rn hemorrhage, migraine, neoplasm, tension headache, vasomotor headache, withdrawal syndrome. Data reviewed: vital signs, nurses notes, lab test result(s), radiologic studies, CT scan, plain films, and as a result, I will discharge patient. Counseling: I had a detailed discussion with the patient and/or guardian regarding the historical points, exam findings, and any diagnostic results supporting the discharge/admit diagnosis, lab results, radiology results, the need for outpatient follow up, to return to the emergency department if symptoms worsen or persist or if there are any questions or concerns that arise at home. Response to treatment: the patient's symptoms have markedly improved after treatment, and as a result, I will discharge patient. Special discussion: I discussed with the patient/guardian in detail that at this point there is no indication for admission to the hospital. It is understood, however, that if the symptoms persist or worsen the patient needs to return immediately for re-evaluation. ED course: Pt improved, no acute findings in workup today. CT head and chest x-ray images negative. Chest x-ray images negative for mass or infection per my interpretation. Labs unremarkable. Vital signs have improved with fluids and benzos. Will discharge home as most likely withdrawal from kratom and given return precautions.. 06/20 08:38 Order name: CBC with Diff; Complete Time: 09:17 rn 06/20 08:38 Order name: CMP; Complete Time: 09:38 rn 06/20 08:38 Order name: CT Head Brain wo Cont; Complete Time: 09:09 rn 06/20 08:38 Order name: XRAY Chest (1 view); Complete Time: 09:20 rn 06/20 08:38 Order name: IV Start; Complete Time: 09:06 rn Administered Medications: 09:11 Drug: metoCLOPramide IVP 10 mg IVP once; over 1 to 2 minutes Route: IVP; Site: right ld1 antecubital; 09:12 Drug: NS 0.9% IV 1000 ml IV at 1000 ml once; to be given as a bolus over 60 minutes ld1 Route: IV; Rate: 1000 ml; Site: right antecubital; 09:12 Drug: Diazepam PO 5 mg PO once Route: PO; ld1 Disposition Summary: 06/20/24 09:47 Discharge Ordered Notes: Location: Home rn Problem: new rn Symptoms: have improved rn Condition: Stable rn Diagnosis - Withdrawal syndrome from kratom rn - Headache rn Followup: rn - With: Private Physician - When: As needed - Reason: Recheck today's complaints, Re-evaluation by your physician Discharge Instructions: - Discharge Summary Sheet rn - General Headache Without Cause rn Forms: - Medication Reconciliation Form rn - 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 EDMS EDMS 08:39 08:38 COMPREHENSIVE METABOLIC PANEL+C.LAB.BRZ ordered. EDMS EDMS
--- NOTE | 2024-06-20 09:48 | ER ---
Nurse's Notes [facility] Name: Shaun Al Age: 53 yrs Sex: Male : 1970 Arrival Date: 06/20/2024 Time: 08:16 Bed 6 Private MD: Diagnosis: Withdrawal syndrome from kratom;Headache Presentation: 06/20 08:28 Chief complaint: Patient states: migraine headache X 2days, trying to stop using iw kratom. Coronavirus screen: At this time, the client does not indicate any symptoms associated with coronavirus-19. Ebola Screen: No symptoms or risks identified at this time. Initial Sepsis Screen: Does the patient meet any 2 criteria? No. Patient's initial sepsis screen is negative. Does the patient have a suspected source of infection? No. Patient's initial sepsis screen is negative. Risk Assessment: Do you want to hurt yourself or someone else? Patient reports no desire to harm self or others. Onset of symptoms was June 18, 2024. 08:28 Method Of Arrival: Ambulatory iw 08:28 Acuity: ZULMA 3 iw Historical: - Allergies: 08:41 No Known Allergies; iw - Home Meds: 08:41 None [Active]; iw - PMHx: 08:41 neuropathy; iw - PSHx: 08:41 shoulder; Appendectomy; iw - Immunization history:: Adult Immunizations not up to date. - Infectious Disease History:: Denies. - Social history:: Smoking status: Reported history of juuling and/or vaping. - Family history:: not pertinent. - Hospitalizations: : No recent hospitalization is reported. Screenin:12 [facility] ED Fall Risk Assessment (Adult) History of falling in the last 3 months, ld1 including since admission No falls in past 3 months (0 pts) Confusion or Disorientation No (0 pts) Intoxicated or Sedated Impaired Gait No (0 pts) Mobility Assist Device Used No (0 pt) Altered Elimination No (0 pt) Score/Fall Risk Level 0 - 2 = Low Risk Oriented to surroundings, Hourly rounding (assess needs \T\ fall precautionary measures) done. Abuse screen: Denies threats or abuse. Denies injuries from another. Nutritional screening: No deficits noted. Tuberculosis screening: No symptoms or risk factors identified. Assessment: 09:12 General: Appears in no apparent distress. comfortable, Behavior is calm, cooperative, ld1 appropriate for age. Pain: Complains of pain in face Pain does not radiate. Pain currently is 7 out of 10 on a pain scale. Quality of pain is described as throbbing, Pain began suddenly, Is continuous. Neuro: Level of Consciousness is awake, alert, obeys commands, Oriented to person, place, time, situation. Cardiovascular: Capillary refill < 3 seconds Patient's skin is warm and dry. Respiratory: Airway is patent Respiratory effort is even, unlabored. GI: Abdomen is round non-distended. : No signs and/or symptoms were reported regarding the genitourinary system. EENT: No signs and/or symptoms were reported regarding the EENT system. Derm: No signs and/or symptoms reported regarding the dermatologic system. 10:36 Reassessment: Patient appears in no apparent distress at this time. No changes from ld1 previously documented assessment. Patient and/or family updated on plan of care and expected duration. Pain level reassessed. Patient is alert, oriented x 3, equal unlabored respirations, skin warm/dry/pink. Patient states feeling better. Patient states symptoms have improved. Vital Signs: 08:28 BP 142 / 89; Pulse 101; Resp 18; Temp 99; Pulse Ox 100% on R/A; Weight 58.97 kg; Height iw 5 ft. 9 in. ; Pain 7/10; 09:12 BP 124 / 82; Pulse 79; Resp 18; Pulse Ox 100% on R/A; ld1 10:15 BP 127 / 76; Pulse 74; Resp 18; Pulse Ox 100% on R/A; ld1 08:28 Body Mass Index 19.20 (58.97 kg, 175.26 cm) iw 08:28 Pain Scale: Adult iw Dewey Coma Score: 09:44 Eye Response: spontaneous(4). Motor Response: obeys commands(6). Verbal Response: rn oriented(5). Total: 15. ED Course: 08:21 Patient arrived in ED. cj3 08:21 Omi Lu MD is Attending Physician. rn 08:26 Rolanda Wei RN is Primary Nurse. ld1 08:30 Triage completed. iw 08:43 Arm band placed on. iw 08:58 CT Head Brain wo Cont In Process Unspecified. EDMS 09:06 CMP Sent. bc6 09:06 CBC with Diff Sent. 6 09:06 Initial lab(s) drawn, by me, sent to lab. Inserted saline lock: 20 gauge in right bc6 antecubital area, using aseptic technique. Blood collected. Flushed with 10 mL NS. 09:12 Patient has correct armband on for positive identification. Placed in gown. Bed in low ld1 position. Call light in reach. Side rails up X2. Pulse ox on. NIBP on. Door closed. Noise minimized. Warm blanket given. 09:12 No provider procedures requiring assistance completed. ld1 09:18 XRAY Chest (1 view) In Process Unspecified. EDMS 10:36 IV discontinued, intact, bleeding controlled, No redness/swelling at site. ld1 Administered Medications: 09:11 Drug: metoCLOPramide IVP 10 mg IVP once; over 1 to 2 minutes Route: IVP; Site: right ld1 antecubital; 09:12 Drug: NS 0.9% IV 1000 ml IV at 1000 ml once; to be given as a bolus over 60 minutes ld1 Route: IV; Rate: 1000 ml; Site: right antecubital; 09:12 Drug: Diazepam PO 5 mg PO once Route: PO; ld1 Medication: 09:12 VIS not applicable for this client. ld1 Outcome: 09:47 Discharge ordered by . rn 10:27 Patient left the ED. iw 10:35 Discharged to home ambulatory, ld1 10:35 Condition: stable 10:35 Discharge instructions given to patient, Instructed on discharge instructions, follow up and referral plans. Demonstrated understanding of instructions, follow-up care, Signatures: Dispatcher [employer] EDMS Gosia Peoples RN RN iw Omi Lu MD MD rn Sims, Lauren, RN RN ld1 Daphney Ca bc6 Angy Mix cj3 Corrections: (The following items were deleted from the chart) 08:43 08:28 BP 142 / 89; Pulse 101bpm; Resp 18bpm; Pulse Ox 100% RA; iw iw
[2024-06-20 10:33] VITALS: TEMP 99; O2SAT 100
[2024-06-20 10:34] VITALS: BP 124/82
== END 2024-06-20 10:27 | disposition home or self-care (01) ==
LOC: ER 08:16
DX: F19.939 Other psychoactive substance use, unspecified with withdrawal, unspecified (principal)
CPT/HCPCS: 36415; 70450; 71045; 80053; 85025; 96374; 99284; J2765; J7030